=== PATIENT | female | born 1990 | race Caucasian/White ===

== ENCOUNTER 2019-06-17 18:39 | Inpatient (IN) ==
[~2019-06-17 18:39] MED LIST: *HR* Nalbuphine 10 MG/ML AMPUL IVP PRN; EPHEDrine 50 MG/ML VIAL IVP PRN; Famotidine 20 MG/2 ML VIAL IVP PRN; Metoclopramide 10 MG/2 ML VIAL IVP PRN; Naloxone 0.4 MG/ML INJ IVP PRN; Ondansetron 4 MG/2 ML VIAL IVP PRN; Penicillin G Potassium 5,000,000 UNIT in 0.9 % Sodium Chloride Mini Bag 100 ML IVPB ONE
[2019-06-17] MEDS: Ringers Solution, Lactated 1,000 ML IVC SCH (18:41)
[2019-06-17] MEDS: miSOPROStol 25 MCG TABLET PO PRN ×2 (19:05→23:19)
[2019-06-17] MEDS: Betamethasone Acet/SodPhos 30 MG/5 ML VIAL IM SCH (19:18)
[2019-06-17] MEDS: Magnesium Sulfate 20 gm/500mL 20 GM/500 ML IV.SOLN IVC SCH (19:23)
[2019-06-17] MEDS ORDERED: Acetaminophen 325 MG TABLET PO ONE (21:28)
[2019-06-17] MEDS: Penicillin G Potassium 2,500,000 UNIT in 0.9 % Sodium Chloride 100 ML IVPB SCH ×2 (23:20→23:32)
[2019-06-18] MEDS: Penicillin G Potassium 2,500,000 UNIT in 0.9 % Sodium Chloride 100 ML IVPB SCH ×4 (03:55→17:17)
[2019-06-18] MEDS ORDERED: miSOPROStol 25 MCG TABLET VG PRN (04:00)
[2019-06-18] MEDS ORDERED: Famotidine 20 MG/2 ML VIAL IVP ONE (09:08)
[2019-06-18 11:36] LABS: Basophils # 0.1 K/mcL (0.0-0.2); Basophils % 0.3 %; Hematocrit 39.7 % (35.3-44.9); Hemoglobin 13.4 g/dL (11.5-15.4); Immature Granulocytes % 0.7 % (0-4); Lymphocytes # 1.6 K/mcL (0.6-4.6); Mean Corpuscular HGB Conc 33.8 g/dL (31.6-35.5); Mean Corpuscular Hemoglobin 30.2 pg (28.0-33.3); Mean Corpuscular Volume 89.6 fL (83.0-100.0); Mean Platelet Volume 11.6 fL (9.4-12.4); Monocytes # 1.4 K/mcL (0.0-1.3); Monocytes % 7.1 %; Neutrophils # 16.4 K/mcL (1.6-8.9); Platelet Count 340 K/mcL (140-400); Red Blood Count 4.43 M/mcL (3.82-4.97); Red Cell Distribution Width 14.4 % (11.5-14.5); Segmented Neutrophils % 83.9 %
[2019-06-18 11:37] LABS: White Blood Count 19.6 K/mcL (4.3-11.1)
[2019-06-18] MEDS ORDERED: *HR* FentaNYL (PF) 100 MCG/2 ML VIAL EP ONE (11:38)
[2019-06-18] MEDS ORDERED: Bupivacaine-MPF 0.25% 10 ML VIAL EP ONE (11:38)
[2019-06-18] MEDS ORDERED: *HR* FentaNYL (PF) 100 MCG/2 ML VIAL ONE ×2 (11:51→20:14)
[2019-06-18] MEDS ORDERED: Bupivacaine-MPF 0.25% 10 ML VIAL ONE (11:51)
[2019-06-18 11:58] LABS: Alanine Aminotransferase 425 Units/L (7-52); Aspartate Amino Transferase 169 Units/L (13-39); BUN/Creatinine Ratio 18 (6-26); Blood Urea Nitrogen 16 mg/dL (6-20); Lactate Dehydrogenase 294 Units/L (140-271); Uric Acid 8.5 mg/dL (2.3-7.6); eGFR For African Americans > 60 (> 60); eGFR For Non-African Americans > 60 (> 60)
[2019-06-18] MEDS: Ringers Solution, Lactated 1,000 ML IVC SCH (13:15)
[2019-06-18 14:01] LABS: Basophils # 0.1 K/mcL (0.0-0.2); Basophils % 0.3 %; Hemoglobin 12.6 g/dL (11.5-15.4); Lymphocytes # 1.6 K/mcL (0.6-4.6); Lymphocytes % 8.7 %; Mean Corpuscular HGB Conc 34.1 g/dL (31.6-35.5); Mean Corpuscular Hemoglobin 30.8 pg (28.0-33.3); Mean Corpuscular Volume 90.5 fL (83.0-100.0); Mean Platelet Volume 11.8 fL (9.4-12.4); Monocytes # 1.5 K/mcL (0.0-1.3); Neutrophils # 15.1 K/mcL (1.6-8.9); Platelet Count 306 K/mcL (140-400); Red Blood Count 4.09 M/mcL (3.82-4.97); Red Cell Distribution Width 14.3 % (11.5-14.5); White Blood Count 18.4 K/mcL (4.3-11.1)
[2019-06-18] MEDS: Magnesium Sulfate 20 gm/500mL 20 GM/500 ML IV.SOLN IVC SCH ×2 (14:09→22:00)
[2019-06-18 14:17] LABS: Alanine Aminotransferase 402 Units/L (7-52); Aspartate Amino Transferase 168 Units/L (13-39); BUN/Creatinine Ratio 17 (6-26); Blood Urea Nitrogen 16 mg/dL (6-20); Lactate Dehydrogenase 288 Units/L (140-271); Uric Acid 8.3 mg/dL (2.3-7.6); eGFR For African Americans > 60 (> 60); eGFR For Non-African Americans > 60 (> 60)
[2019-06-18] MEDS ORDERED: Oxytocin 20 units/ LR 1000 mL 20 UNIT/1,000 ML BAG IVC SCH (15:35)
[2019-06-18] MEDS: Epidural Premix (fent/bupiv) 110 ML EP SCH ×2 (17:19→19:41)
[2019-06-18] MEDS ORDERED: *HR* Labetalol 20 MG/4 ML SYRINGE IVP ONE ×2 (18:10→18:11)
[2019-06-18] MEDS: Betamethasone Acet/SodPhos 30 MG/5 ML VIAL IM SCH (19:27)
[2019-06-18] MEDS ORDERED: Lidocaine/EPI 1:200k 2% PF 20 ML VIAL ONE ×2 (20:13→20:44)
[2019-06-18] MEDS ORDERED: Ringers Solution, Lactated 1,000 ML ONE (20:17)
[2019-06-18] MEDS ORDERED: *HR* Oxytocin 10 UNIT/ML VIAL IM ONE (20:17)
[2019-06-18] MEDS ORDERED: Esmolol 100 MG/10 ML VIAL IVP ONE (20:38)
[2019-06-18] MEDS ORDERED: *HR* OxyCODONE/APAP 5/325 TABLET PO PRN (20:41)
[2019-06-18] MEDS ORDERED: Ibuprofen 400 MG TABLET PO PRN (20:41)
[2019-06-18] MEDS ORDERED: Ondansetron 4 MG/2 ML VIAL IVP PRN (20:41)
[2019-06-18] MEDS ORDERED: Acetaminophen IV 1,000 MG/100 ML INFUS..BTL IVPB ONE (20:42)
[2019-06-18] MEDS ORDERED: *HR* Morphine Sulfate/PF 10 MG/10 ML AMPUL ONE (21:19)
[2019-06-19] MEDS ORDERED: ceFAZolin 2,000 MG in 0.9 % Sodium Chloride 100 ML IVP SCH (00:13)
[2019-06-19] MEDS ORDERED: Simethicone 80 MG TAB.CHEW PO PRN (00:13)
[2019-06-19] MEDS ORDERED: Ondansetron 4 MG/2 ML VIAL IVP PRN (00:13)
[2019-06-19] MEDS ORDERED: Metoclopramide 10 MG/2 ML VIAL IVP PRN (00:13)
[2019-06-19] MEDS ORDERED: *HR* OxyCODONE/APAP 5/325 TABLET PO PRN (00:13)
[2019-06-19] MEDS ORDERED: Sennosides 8.6 MG TABLET PO PRN (00:13)
[2019-06-19] MEDS: Oxytocin 20 units/ LR 1000 mL 20 UNIT/1,000 ML BAG IVC SCH ×2 (05:21→17:06)
[2019-06-19 06:35] LABS: Basophils % 0.2 %; Hematocrit 34.5 % (35.3-44.9); Hemoglobin 11.3 g/dL (11.5-15.4); Immature Granulocytes % 1.4 % (0-4); Lymphocytes # 1.5 K/mcL (0.6-4.6); Lymphocytes % 6.5 %; Mean Corpuscular HGB Conc 32.8 g/dL (31.6-35.5); Mean Corpuscular Hemoglobin 30.8 pg (28.0-33.3); Mean Platelet Volume 11.5 fL (9.4-12.4); Monocytes # 1.5 K/mcL (0.0-1.3); Monocytes % 6.5 %; Neutrophils # 19.7 K/mcL (1.6-8.9); Platelet Count 257 K/mcL (140-400); Red Blood Count 3.67 M/mcL (3.82-4.97); Red Cell Distribution Width 14.4 % (11.5-14.5); Segmented Neutrophils % 85.4 %; White Blood Count 23.1 K/mcL (4.3-11.1)
[2019-06-19] MEDS: Magnesium Sulfate 20 gm/500mL 20 GM/500 ML IV.SOLN IVC SCH ×2 (07:00→17:14)
[2019-06-19 08:05] LABS: Basophils # 0.1 K/mcL (0.0-0.2); Basophils % 0.2 %; Hematocrit 32.8 % (35.3-44.9); Hemoglobin 11.1 g/dL (11.5-15.4); Immature Granulocytes % 1.4 % (0-4); Lymphocytes # 1.5 K/mcL (0.6-4.6); Lymphocytes % 6.9 %; Mean Corpuscular HGB Conc 33.8 g/dL (31.6-35.5); Mean Corpuscular Hemoglobin 30.7 pg (28.0-33.3); Mean Corpuscular Volume 90.6 fL (83.0-100.0); Mean Platelet Volume 11.8 fL (9.4-12.4); Monocytes # 1.6 K/mcL (0.0-1.3); Monocytes % 6.9 %; Neutrophils # 18.9 K/mcL (1.6-8.9); Platelet Count 250 K/mcL (140-400); Red Blood Count 3.62 M/mcL (3.82-4.97); Red Cell Distribution Width 14.4 % (11.5-14.5); Segmented Neutrophils % 84.6 %; White Blood Count 22.3 K/mcL (4.3-11.1)
[2019-06-19 08:20] LABS: Alanine Aminotransferase 332 Units/L (7-52); Aspartate Amino Transferase 145 Units/L (13-39); BUN/Creatinine Ratio 17 (6-26); Blood Urea Nitrogen 16 mg/dL (6-20); Lactate Dehydrogenase 363 Units/L (140-271); Uric Acid 9.3 mg/dL (2.3-7.6); eGFR For African Americans > 60 (> 60); eGFR For Non-African Americans > 60 (> 60)
[2019-06-19] MEDS: metroNIDAZOLE 500 MG TABLET PO SCH ×3 (08:37→20:43)
[2019-06-19] MEDS: Prenatal Vit/FA 1 EACH TABLET PO SCH (08:38)
[2019-06-19] MEDS: Ibuprofen 600 MG TABLET PO PRN (20:43)
[2019-06-20] MEDS: Ibuprofen 600 MG TABLET PO PRN ×3 (04:40→21:16)
[2019-06-20] MEDS: Prenatal Vit/FA 1 EACH TABLET PO SCH (08:45)
[2019-06-20] MEDS: metroNIDAZOLE 500 MG TABLET PO SCH ×3 (08:46→21:15)
[2019-06-20 16:23] LABS: Basophils % 0.2 %; Eosinophils # 0.1 K/mcL (0.0-0.6); Eosinophils % 0.6 %; Hematocrit 32.5 % (35.3-44.9); Hemoglobin 10.4 g/dL (11.5-15.4); Immature Granulocytes % 0.8 % (0-4); Lymphocytes # 1.9 K/mcL (0.6-4.6); Lymphocytes % 15.8 %; Mean Corpuscular Hemoglobin 30.8 pg (28.0-33.3); Mean Corpuscular Volume 96.2 fL (83.0-100.0); Mean Platelet Volume 11.2 fL (9.4-12.4); Monocytes # 1.1 K/mcL (0.0-1.3); Monocytes % 9.5 %; Neutrophils # 8.8 K/mcL (1.6-8.9); Platelet Count 208 K/mcL (140-400); Red Blood Count 3.38 M/mcL (3.82-4.97); Red Cell Distribution Width 15.1 % (11.5-14.5); Segmented Neutrophils % 73.1 %; White Blood Count 12.1 K/mcL (4.3-11.1)
[2019-06-20 16:41] LABS: Alanine Aminotransferase 164 Units/L (7-52); Aspartate Amino Transferase 57 Units/L (13-39); BUN/Creatinine Ratio 19 (6-26); Blood Urea Nitrogen 19 mg/dL (6-20); Lactate Dehydrogenase 269 Units/L (140-271); Uric Acid 9.8 mg/dL (2.3-7.6); eGFR For African Americans > 60 (> 60); eGFR For Non-African Americans > 60 (> 60)
[2019-06-21] MEDS: Ibuprofen 600 MG TABLET PO PRN ×2 (06:33→20:05)
[2019-06-21] MEDS: Prenatal Vit/FA 1 EACH TABLET PO SCH (07:38)
[2019-06-21 11:39] LABS: Basophils # 0.1 K/mcL (0.0-0.2); Basophils % 0.4 %; Eosinophils # 0.4 K/mcL (0.0-0.6); Eosinophils % 2.9 %; Hematocrit 32.1 % (35.3-44.9); Hemoglobin 10.3 g/dL (11.5-15.4); Immature Granulocytes % 0.9 % (0-4); Lymphocytes # 1.6 K/mcL (0.6-4.6); Lymphocytes % 12.5 %; Mean Corpuscular HGB Conc 32.1 g/dL (31.6-35.5); Mean Corpuscular Hemoglobin 30.7 pg (28.0-33.3); Mean Corpuscular Volume 95.5 fL (83.0-100.0); Mean Platelet Volume 10.7 fL (9.4-12.4); Monocytes % 7.5 %; Neutrophils # 9.8 K/mcL (1.6-8.9); Platelet Count 228 K/mcL (140-400); Red Blood Count 3.36 M/mcL (3.82-4.97); Red Cell Distribution Width 15.1 % (11.5-14.5); Segmented Neutrophils % 75.8 %; White Blood Count 12.9 K/mcL (4.3-11.1)
[2019-06-21 12:00] LABS: Alanine Aminotransferase 136 Units/L (7-52); Aspartate Amino Transferase 48 Units/L (13-39); BUN/Creatinine Ratio 18 (6-26); Blood Urea Nitrogen 14 mg/dL (6-20); Lactate Dehydrogenase 256 Units/L (140-271); Uric Acid 8.6 mg/dL (2.3-7.6); eGFR For African Americans > 60 (> 60); eGFR For Non-African Americans > 60 (> 60)
[2019-06-22] MEDS: Ibuprofen 600 MG TABLET PO PRN ×2 (06:24→14:41)
[2019-06-22 07:40] VITALS: BP 146/82
[2019-06-22] MEDS: Prenatal Vit/FA 1 EACH TABLET PO SCH (09:01)
== END 2019-06-22 15:18 | disposition home or self-care (01) | DRG 787 ==
LOC: 1NENULAB → 1NENUOBS 06-19 03:56
PROVIDERS: ADMIT Advanced Practice Midwife; ATTEND Advanced Practice Midwife